=== PATIENT | male | born 1980 | race Caucasian/White ===

== ENCOUNTER → 2018-02-23 | Outpatient (CLI) | payer BC ==
[~2018-02-23] MED LIST: KEFLEX500 M1 PO
[2018-02-23 11:44] LABS: HEMATOCRIT 49.4 % (42.0-52.0); HEMOGLOBIN 16.9 g/dl (14.0-18.0); MEAN CELL VOLUME 88.4 fl (80.0-94.0); MEAN CORPUSCULAR HGB 30.2 pg (27.0-31.0); MEAN CORPUSCULAR HGB CONC 34.2 g/dl (33.0-37.0); MEAN PLATELET VOLUME 10.1 fl (9.6-12.3); RED BLOOD COUNT 5.59 10*6/uL (4.50-5.90); RED CELL DISTRI WIDTH 12.9 % (0-14.5); WHITE BLOOD COUNT 7.9 10*3/uL (4.8-10.8)
[2018-02-23 12:07] LABS: ALBUMIN 4.4 gm/dl (3.1-4.5); ALKALINE PHOSPHATASE 63 U/L (45-117); BUN 10 mg/dl (7-24); CHLORIDE 105 mmol/L (98-107); CHOLESTEROL 190 mg/dL (<200); CREATININE 1.08 mg/dL (0.70-1.30); FREE T4 1.01 ng/dl (0.76-1.46); HDL CHOLESTEROL 32 mg/dl (40-60); LDL CHOLESTEROL 116 mg/dL (9-159); POTASSIUM 4.2 mmol/L (3.5-5.1); SGOT/AST 17 IU/L (3-35); SGPT/ALT 36 U/L (12-78); SODIUM 140 mmol/L (136-145); TOTAL PROTEIN 7.5 gm/dL (6.4-8.2); TRIGLYCERIDES 210 mg/dl (<150); VLDL CHOLESTEROL 42 mg/dL (6-40)
[2018-02-25 10:04] LABS: TESTOSTERONE FREE, (DIRECT) 13.2 pg/mL (8.7-25.1)
== END | disposition home or self-care (01) ==
LOC: LAB 11:17
PROVIDERS: Family Medicine
DX: E78.00 Pure hypercholesterolemia, unspecified (principal); R53.83 Other fatigue; L98.9 Disorder of the skin and subcutaneous tissue, unspecified; F17.200 Nicotine dependence, unspecified, uncomplicated

== ENCOUNTER 2018-08-04 07:05 | Emergency (ER) | payer BC ==
[~2018-08-04] VITALS: Wt 79.4 kg
--- NOTE | ~2018-08-04 | EKG ---
[place], [place] ELECTROCARDIOGRAM REPORT NAME: SHANTAL KENNEY UNIT #: [id number] ROOM: DOCTOR: EPIPHANY DRAFT REPORT BIRTHDATE: [birth year] [facility] Test Date: 2018-08-04 Test Time: 07:43:42 Pat Name: SHANTAL KENNEY Department: Room: Gender: [employer] Operator: Kat Camejo : 1980 Requested By: JAVAD LEAHY Order Number: [id number] Reading MD: Lupillo Pearson MD Measurements Intervals [place] Rate: 82 P: 55 AR: 115 QRS: 72 QRSD: 95 T: 49 QT: 362 QTc: 423 Interpretive Statements Sinus rhythm Borderline short AR interval Electronically Signed On 08-06-2018 9:36:08 PDT by Lupillo Pearson MD CM:EKGRPT:ELECTROCARDIOGRAM REPORT [id number] JAVAD LEAHY MD [facility] D[facility] RE[facility] JAVAD LEAHY MD
[2018-08-04] MEDS ORDERED: PENICILLIN-VK500 MG PO (07:36)
[2018-08-04 07:44] LABS: BASO % 0.5 % (0.0-1.0); EOS % 0.5 % (1.0-4.0); HEMATOCRIT 45.7 % (42.0-52.0); HEMOGLOBIN 15.5 g/dl (14.0-18.0); LYMPH # 0.9 10*3/uL (1.3-4.4); LYMPH % 15.1 % (27.0-41.0); MEAN CELL VOLUME 88.7 fl (80.0-94.0); MEAN CORPUSCULAR HGB 30.1 pg (27.0-31.0); MEAN CORPUSCULAR HGB CONC 33.9 g/dl (33.0-37.0); MEAN PLATELET VOLUME 9.9 fl (9.6-12.3); MONO # 0.8 10*3/uL (0.1-1.0); MONO % 12.9 % (3.0-9.0); NEUT # 4.2 10*3/uL (2.3-7.9); NEUT % 70.7 % (47.0-73.0); PLATELET COUNT AUTOMATED 171 10*3/uL (130-400); RED BLOOD COUNT 5.15 10*6/uL (4.50-5.90)
[2018-08-04 08:00] LABS: BUN 12 mg/dl (7-24); CHLORIDE 107 mmol/L (98-107); CREATININE 1.01 mg/dL (0.70-1.30); POTASSIUM 4.1 mmol/L (3.5-5.1); SODIUM 139 mmol/L (136-145)
[2018-08-04 08:02] LABS: TROPONIN I < 0.015 ng/ml (<0.045)
== END 2018-08-04 09:46 | disposition home or self-care (01) ==
LOC: ED 07:05
PROVIDERS: Emergency Medicine
DX: R20.2 Paresthesia of skin (principal); K08.89 Other specified disorders of teeth and supporting structures; M79.621 Pain in right upper arm; R07.89 Other chest pain

== ENCOUNTER 2022-10-25 09:50 | Emergency (ER) | payer OTHER ==
[~2022-10-25] VITALS: Ht 180.3 cm; Wt 97.5 kg
[~2022-10-25 09:50] MED LIST changes: +PENICILLIN-VK500 MG PO
== END 2022-10-25 16:26 | disposition left against medical advice (07) ==
LOC: ED 09:50
DX: M79.671 Pain in right foot (principal); F17.200 Nicotine dependence, unspecified, uncomplicated

== ENCOUNTER → 2025-09-08 | Outpatient (CLI) | payer BC ==
[2025-09-08 11:19] LABS: MEAN CELL VOLUME 91.7 fl (80.0-94.0); MEAN CORPUSCULAR HGB 30.9 pg (27.0-31.0); MEAN PLATELET VOLUME 10.1 fl (9.6-12.3); NUCLEATED RED BLOOD CELL 0.0 % (0.0-0.0); NUCLEATED RED BLOOD CELL 0.0 10*3/uL (0.0-0.0); PLATELET COUNT AUTOMATED 288.0 10*3/uL (130-400); RED CELL DISTRI WIDTH 12.9 % (0-14.5)
[2025-09-08 11:44] LABS: BUN 11 mg/dl (9-23); LDL CHOLESTEROL 124 mg/dL (9-159); SGPT/ALT 16 U/L (5-49); VITAMIN D, 25-HYDROXY 42.1 ng/mL (30-100)
== END | disposition home or self-care (01) ==
LOC: LAB 10:41
PROVIDERS: ATTEND Family Medicine
DX: K64.0 First degree hemorrhoids (principal); R53.83 Other fatigue; E55.9 Vitamin D deficiency, unspecified; Z00.00 Encounter for general adult medical examination without abnormal findings; Z13.220 Encounter for screening for lipoid disorders